=== PATIENT | male | born 1945 | race African-American/Black ===

== ENCOUNTER 2025-06-20 10:45 | Inpatient (IN) | payer OTHER ==
[~2025-06-20] VITALS: Ht 180.3 cm; Wt 91.6 kg
[2025-06-20 10:47] VITALS: O2SAT 100
[2025-06-20 11:35] LABS: BASOPHILS % 0.6 % (0.0-2.0); EOSINOPHILS % 1.9 % (0.0-5.0); HEMATOCRIT. 40.6 % (42.0-52.0); HEMOGLOBIN. 13.2 g/dL (14.0-18.0); LYMPHOCYTES % 23.8 % (20.0-50.0); MEAN PLATELET VOLUME 9.6 fl (7.4-10.4); MONOCYTES % 14.4 % (2.0-8.0); NEUTROPHILS % 59.3 % (40.0-76.0); PLATELET 211 x1000/uL (130-400); RED BLOOD CELL COUNT 4.76 mill/uL (4.7-6.1); RED CELL DISTRIBUTION WIDTH 14.4 % (11.6-14.6)
[2025-06-20] MEDS ORDERED: ACETAMINOPHEN 325MG TABLET PO PRN ×2 (13:00)
[2025-06-20] MEDS ORDERED: ONDANSETRON HCL 4MG/2ML INJ IV PRN (13:00)
[2025-06-20] MEDS ORDERED: IPRATROPIUM/ALBUTEROL 0.5-3(2.5)MG/3ML NEB HHN PRN (13:00)
[2025-06-20] MEDS ORDERED: DOCUSATE SODIUM 100MG CAPSULE PO PRN (13:00)
[2025-06-20 13:05] LABS: CREATININE 1.9 mg/dL (0.6-1.3); UREA NITROGEN BLOOD 16.0 mg/dL (9-23)
[2025-06-20 13:06] LABS: TROPONIN I HIGH SENSITIVITY 8 ng/L (3.0-53)
[2025-06-20 14:38] VITALS: BP 176/98; PULSE 51; RESP 18; TEMP 35.8; O2SAT 97
[2025-06-20 14:40] VITALS: BP 176/98; PULSE 50; RESP 18; TEMP 35.8064
[2025-06-20] MEDS ORDERED: ALLO100T MT (14:47)
[2025-06-20] MEDS ORDERED: PRAV10TA35 MT (14:47)
[2025-06-20] MEDS ORDERED: AMLO5TAB88 MT (14:47)
[2025-06-20] MEDS ORDERED: MAGN400C MT (14:47)
[2025-06-20] MEDS ORDERED: LOSA25TA26 MT (14:47)
[2025-06-20] MEDS: CLONIDINE 0.1MG TABLET PO PRN (14:54)
[2025-06-20 16:00] VITALS: BP 169/93; PULSE 53; RESP 18; TEMP 36.3; O2SAT 96
[2025-06-20 16:45] LABS: *AMPHETAMINES SCREEN URINE NEGATIVE (NEGATIVE); *BARBITURATES SCREEN URINE NEGATIVE (NEGATIVE); *BENZODIAZEPINES SCREEN URINE NEGATIVE (NEGATIVE); *COCAINE SCREEN URINE NEGATIVE (NEGATIVE); CANNABINOID URINE SCREEN NEGATIVE (NEGATIVE); ECSTASY MDMA SCREEN URINE NEGATIVE (NEGATIVE); METHADONE URINE SCREEN NEGATIVE (NEGATIVE); OPIATES URINE SCREEN NEGATIVE (NEGATIVE); PHENCYCLIDINE URINE SCREEN NEGATIVE (NEGATIVE)
[2025-06-20] MEDS ORDERED: LOSARTAN 25 MG TABLET PO SCH (17:00)
[2025-06-20] MEDS ORDERED: AMLODIPINE 5MG TABLET PO SCH (17:00)
[2025-06-20 17:47] VITALS: BP 146/83; PULSE 52; RESP 18; TEMP 36.3; O2SAT 97
[2025-06-20] MEDS: PANTOPRAZOLE SODIUM 40 MG/VIAL IV SCH (17:57)
[2025-06-20] MEDS: AMLODIPINE 10MG TABLET PO SCH (18:55)
[2025-06-20 20:00] VITALS: BP 157/87; PULSE 52; RESP 16; TEMP 36.4; O2SAT 96
[2025-06-21] VITALS: BP 133/85; PULSE 51; RESP 16; TEMP 35.9; O2SAT 96
[2025-06-21 04:00] VITALS: BP 159/98; PULSE 52; RESP 16; TEMP 36.3; O2SAT 97
[2025-06-21] MEDS ORDERED: SODIUM CHLORIDE 0.9% 500 ML IV ONE (06:00)
[2025-06-21 08:00] VITALS: BP 145/88; PULSE 53; RESP 20; TEMP 36.5; O2SAT 97
[2025-06-21] MEDS ORDERED: AMLODIPINE 5MG TABLET PO SCH (09:00)
[2025-06-21 12:00] VITALS: BP 164/94; PULSE 58; RESP 18; TEMP 36.4; O2SAT 98
[2025-06-21] MEDS: MAGNESIUM OXIDE 400MG TABLET PO SCH (14:09)
[2025-06-21] MEDS: ENOXAPARIN 40MG/0.4ML SYR SUBCUT SCH (14:09)
[2025-06-21] MEDS: LOSARTAN 25 MG TABLET PO SCH (14:47)
[2025-06-21 16:00] VITALS: BP 147/80; PULSE 56; RESP 18; TEMP 36.6; O2SAT 98
[2025-06-21] MEDS ORDERED: ATORVASTATIN CALCIUM 10MG TABLET PO SCH (21:00)
[2025-06-22] MEDS ORDERED: ALLOPURINOL 100 MG TABLET PO SCH (09:00)
== END 2025-06-21 18:30 | disposition left against medical advice (07) | DRG 311 ==
LOC: ER 10:45 → 8WST 12:21 → EDBEDREQTM 12:29 → ENRESERV 13:15
PROVIDERS: ADMIT Internal Medicine; ATTEND Internal Medicine
DX: I24.9 Acute ischemic heart disease, unspecified (principal); N17.9 Acute kidney failure, unspecified; I12.9 Hypertensive chronic kidney disease with stage 1 through stage 4 chronic kidney disease, or unspecified chronic kidney disease; N18.9 Chronic kidney disease, unspecified; K21.9 Gastro-esophageal reflux disease without esophagitis; E78.5 Hyperlipidemia, unspecified; R00.1 Bradycardia, unspecified; M10.9 Gout, unspecified; Z53.29 Procedure and treatment not carried out because of patient's decision for other reasons; I48.0 Paroxysmal atrial fibrillation; Z79.01 Long term (current) use of anticoagulants
CPT/HCPCS: 36415; 71045; 80048; 80305; 84443; 84484; 85025; 93005; 93306; 99291; J1650; J2470